=== PATIENT | female | born 1985 | race African-American/Black ===

== ENCOUNTER 2016-04-22 11:04 | Emergency (ER) | payer BC, MEDICAID ==
[2016-04-22] MEDS ORDERED: OPTIRAY 350 100 ML VIAL HMH IV ONE (11:05)
[2016-04-22] MEDS ORDERED: MORPHINE 4 MG/ML SYR ONE (12:03)
[2016-04-22] MEDS ORDERED: ONDANSETRON 4 MG VIAL ONE ×2 (12:04→15:16)
[2016-04-22] MEDS ORDERED: SODIUM CHLORIDE 0.9% 1,000 ML ONE (15:16)
== END 2016-04-22 16:38 | disposition home or self-care (01) ==
LOC: ER 11:04
DX: S39.011A Strain of muscle, fascia and tendon of abdomen, initial encounter (principal)
CPT/HCPCS: 36415; 74177; 80053; 81003; 83690; 84703; 85025; 96361; 96374; 96375; 96376